=== PATIENT | male | born 1955 | race Caucasian/White ===

== ENCOUNTER 2019-04-15 14:43 | Outpatient (CLI) | payer BC ==
--- NOTE | 2019-04-15 17:35 | RAD ---
LUMBAR SPINE FOUR VIEWS: HISTORY: Low back pain. FINDINGS: Lumbar vertebrae maintain height and alignment. Mild degenerative changes are noted with osteophytes seen at L1, L2, and L3. Disk spaces are preserved. Mild facet hypertrophy. No spondylolisthesis. IMPRESSION: Mild degenerative osteophytes and facet hypertrophy. POS: [facility]
== END 2019-04-15 14:44 | disposition home or self-care (01) ==
LOC: TBSIIMAG 14:43
PROVIDERS: ATTEND Neurological Surgery
DX: M54.5 Low back pain (principal); M47.816 Spondylosis without myelopathy or radiculopathy, lumbar region; M25.78 Osteophyte, vertebrae
CPT/HCPCS: 72110